=== PATIENT | female | born 1970 | race Caucasian/White ===

== ENCOUNTER → 2017-07-29 | Outpatient (CLI) | payer BC ==
[2004-04-16 00:39] VITALS: PULSE 66
== END ==
LOC: MC.RAD 14:26
DX: Z12.31 Encounter for screening mammogram for malignant neoplasm of breast (principal); R92.1 Mammographic calcification found on diagnostic imaging of breast

== ENCOUNTER → 2017-08-08 | Outpatient (CLI) | payer BC ==
[2004-04-16 00:39] VITALS: PULSE 66
== END ==
LOC: MC.RAD 06:48
DX: R92.0 Mammographic microcalcification found on diagnostic imaging of breast (principal)

== ENCOUNTER → 2017-08-20 | Outpatient (CLI) | payer BC ==
[2004-04-16 00:39] VITALS: PULSE 66
== END ==
LOC: MC.RAD 10:00
DX: R92.0 Mammographic microcalcification found on diagnostic imaging of breast (principal)
CPT/HCPCS: 30634

== ENCOUNTER → 2018-08-21 | Outpatient (CLI) | payer BC ==
[2004-04-16 00:39] VITALS: PULSE 66
== END ==
LOC: MC.RAD 08:06
DX: Z12.31 Encounter for screening mammogram for malignant neoplasm of breast (principal)

== ENCOUNTER 2019-04-30 08:46 | Day surgery (SDC) | payer BC ==
[~2019-04-30] VITALS: Ht 177.8 cm; Wt 111.5 kg
[2019-04-30] VITALS (13 sets, daily range): BP systolic 130–142; BP diastolic 78–89; PULSE 74–102; TEMP 97.6–98
[2019-04-30] MEDS ORDERED: COZAAR100 MG PO (09:23)
[2019-04-30] MEDS ORDERED: HCTZ12.5TAB PO (09:24)
[2019-04-30] MEDS ORDERED: ZYRTEC ALLERGY10 MG PO (09:24)
[2019-04-30] MEDS ORDERED: NORCO 325 MG-51 TAB PO (12:20)
--- NOTE | 2019-04-30 13:20 | NUR ---
Pt arrived to [facility] clinic very sleepy but responds to prompting. VSS and WNL. Received report from GIANNA Flores. Pt came back on 3 L of 02 and reduced to 2 L because saturations in upper 90's. Pt resting comfortably in bed. Call light within reach.
--- NOTE | 2019-04-30 13:30 | NUR ---
Pt lying in bed, awake but refuses to open her eyes. Pt states that she has 9/10 pain in left side of abdomen. She days she doesn't know how to describe it except that "it hurts all the time." Per PACU, RN, pt already received 2 mg of Dilaudid. Pt reports that meds did not help. Encouraged pt to eat/drink so [place] can be given without hurting stomach.
--- NOTE | 2019-04-30 13:45 | NUR ---
Pt continues to report 9/10 pain. VSS and WNL. Abdomen soft and incisions CDI. Pt ate pudding and drank water without c/o nausea. Call light within reach and family at bedside.
--- NOTE | 2019-04-30 14:00 | NUR ---
Pt still reporting 9/10 pain. [place] given per orders. Notified Dr. Fisher regarding patient's excessive pain. Dr. Fisher gave order for now dose of dilauded 0.5 mg.
--- NOTE | 2019-04-30 14:15 | NUR ---
No changes with pt's pain. Family coming up to RN station multiple times. Educated family on signs/symptoms of emergency. VSS and WNL. call light within reach
--- NOTE | 2019-04-30 14:30 | NUR ---
Pt Dilauded given and pt requests to be placed back on O2 for feeling very sleepy. Pt states that Dilauded did not help but made her dizzy instead. Dr. Fisher in surgery, but message sent through [employer]IC that pt would like to see her.
--- NOTE | 2019-04-30 15:00 | NUR ---
No change in pt's pain. Notifying Dr. Fisher throughout regarding patient's and family's concerns.
--- NOTE | 2019-04-30 15:15 | NUR ---
Notified Dr. Fisher regarding pt's pain. Order received for Ultram.
--- NOTE | 2019-04-30 16:10 | NUR ---
Pt requesting to be moved in bed. Pt became very teary during move saying that the pain was bad. VSS and WNL. Pt unwilling/unable to move herself and required 2 person assist to lift in bed. Pt states that the ice pack seems to help but none of the medication has seemed to help. Call light within reach and family at bedside.
--- NOTE | 2019-04-30 16:22 | NUR ---
Gave pt and family update on Dr. Fisher to come to see pt. VSS and WNL. Abdomen soft but tender in left lower quadrant.
--- NOTE | 2019-04-30 16:45 | NUR ---
Pt resting in bed. Pt still says her pain is 8/10. Ice pack on abdomen. Incisions CDI, abdomen soft and tender in left lower quadrant. Pt states, "the pain is a little better, but it hurts to breathe or move." Pt requesting to keep O2 on, because she feels drowsy and "needs to think about breathing."
--- NOTE | 2019-04-30 17:05 | NUR ---
Dr. Fisher at bedside assessing patient and her symptoms. Received orders from Dr. Fisher for a now dose of Tylenol and now dose of oxycodone. Received orders to admit patient to room 347. VSS continue to be stable and WNL. Pt and family have no further concerns or questions at this time.
--- NOTE | 2019-04-30 17:47 | NUR ---
Pt was transferred via cart to room 347. Pt teary and crying during transfer to bed because of pain. Father at bedside. Pt and father have no further concerns/questions at this time. Pt resting comfortably in bed.
--- NOTE | 2019-04-30 18:00 | NUR ---
Patient is to the floor from outpatient services. She got up to the bathroom and was able to void, she had not voided since she was admitted this am. She continues to have pain. Her is at bedside. Will check transfer orders and given pain medications as ordered. No other changes at this time. Call light within reach.
--- NOTE | 2019-04-30 18:40 | NUR ---
Giving patient ordered toradol and valium, patient stated her pain is finally getting better. Discussed medications ordered and how often she can have them. Patient is rating her pain at a 5 on 0-10 scale and denies nausea. She is eating and drinking. She did not have any other requests at this time. Call light within reach.
--- NOTE | 2019-04-30 21:30 | NUR ---
PATIENT AWAKE, REPORTS NECK PAIN AND PROVIDED AN ICE PACK PER HER REQUEST. REPORTS PAIN HAS LESSENED 5/10 AT THIS TIME.
--- NOTE | 2019-04-30 22:10 | NUR ---
PATIENT HAS EMESIS AT THIS TIME, UNMEASURABLE SHE VOMITED ON THE FLOOR.
--- NOTE | 2019-04-30 22:15 | NUR ---
SUPERVISED PATIENT WHILE SHE AMBULATED IN THE HALLWAY AFTER SHE VOIDED 300CC WITHOUT PROBLEM. BACK TO BED UNASSISTED. SCDS ON.
[2019-05-01 05:00] VITALS: BP 139/91; PULSE 89; TEMP 98
--- NOTE | 2019-05-01 06:00 | NUR ---
Patient reports gas pains, out in hallway ambulating independently.
[2019-05-01 07:49] VITALS: BP 143/90; PULSE 91; TEMP 98
--- NOTE | 2019-05-01 08:00 | NUR ---
PATIENT IS UP AND AMBULATING THE HALLS INDEPENDENTLY THIS MORNING. PATIENT IS SIGHTLY DROWSY BUT IS OTHERWISE A&OX4. VSS. BOWEL SOUNDS ACTIVE ALL FOUR QUADRANTS. 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 PATIENT TOLERATING DIET. PATIENT STATES THAT SHE HAD AN EPISODE OF NAUSEA AND VOMITING THIS MORNING, BUT HAS BEEN FINE SINCE. PATIENT IS BELCHING, BUT DENIES PASSING GAS AT THIS TIME. SHALLOW BREATHING NOTED. ALL LUNG REECE CLEAR UPON AUSCULTATION. PATIENT DENIES SOB. PATIENT STATES THAT THE PAIN IN THE LEFT SIDE OF THE ABDOMEN IS SHARP IN NATURE. PATIENT DESCRIBES THE RIGHT-SIDED ABDOMINAL PAIN A PRESSURE. PATIENT ENCOURGED TO CONTINUE AMBULATING TO GET RID OF GAS. POSITIVE PEDAL PULSES EQUAL BILATERALLY. RIGHT HAND TO INT. CALL LIGHT WITHIN REACH. PATIENT DENIES ANY OTHER NEEDS AT THIS TIME.
[2019-05-01] MEDS ORDERED: TYLENOL 500MG500 MG PO (11:37)
[2019-05-01] MEDS ORDERED: ULTRAM 50MG TAB50 MG PO (11:37)
[2019-05-01] MEDS ORDERED: MOTRIN 600600 MG/TAB PO (11:37)
--- NOTE | 2019-05-01 11:55 | NUR ---
PATIENTS RIGHT HAND INT DISCONTINUED PER PENDING DISCHARGE. TIP INTACT. PATIENT TOLERATED WELL.
--- NOTE | 2019-05-01 12:20 | NUR ---
DISCHARGE INSTRUCTIONS REVIEWED WITH PATIENT. ALL QUESTIONS ANSWERED. PATIENT PERSONAL BELONGINGS GATHERED. PATIENT AMBULATED WITH SURGICAL STAFF TO PERSONAL VEHICLE. PATIENT DISCHARGED.
--- NOTE | 2019-05-01 12:56 | NUR ---
Funeral Home Attendant offered prayer with patient before patient was discharged.
== END 2019-05-01 12:20 | disposition home or self-care (01) ==
LOC: SDCO 08:46 → SURG 17:45 → SDCO 05-01 12:20
DX: K43.0 Incisional hernia with obstruction, without gangrene (principal); K42.9 Umbilical hernia without obstruction or gangrene; K66.0 Peritoneal adhesions (postprocedural) (postinfection); G89.18 Other acute postprocedural pain; I10 Essential (primary) hypertension; Z79.899 Other long term (current) drug therapy; Z88.0 Allergy status to penicillin; Z88.6 Allergy status to analgesic agent; Z91.040 Latex allergy status
CPT/HCPCS: OP; C1781; J0690; J1100; J1170; J1885; J2405; J2704; J3010; J7120

== ENCOUNTER → 2020-07-21 | Outpatient (CLI) | payer BC ==
[~2020-07-21] MED LIST: COZAAR100 MG PO; HCTZ12.5TAB PO; MOTRIN 600600 MG/TAB PO; NORCO 325 MG-51 TAB PO; TYLENOL 500MG500 MG PO; ULTRAM 50MG TAB50 MG PO; ZYRTEC ALLERGY10 MG PO
== END ==
LOC: MC.RAD
DX: Z12.31 Encounter for screening mammogram for malignant neoplasm of breast (principal); Z98.82 Breast implant status